=== PATIENT | male | born 1970 | race Caucasian/White ===

== ENCOUNTER 2017-03-20 07:30 | Inpatient (IN) ==
[2017-03-14 16:16] LABS: Appearance,Urine HAZY; Bilirubin,Urine NEG (NEG); Color,Urine YELLOW; Glucose,Urine (UA) NEGATIVE (NEG); Leukocyte Esterase,Urine NEG /uL (NEG); Nitrate,Urine NEG (NEG); Protein,Urine NEG (NEG); Specific Gravity,Urine 1.029 (1.000-1.035); Urine Blood NEG mg/dL (<0.03); Urobilinogen,Urine NEG (NEG)
[2017-03-14 16:37] LABS: Basophils # (Auto) 0 K/mcL (0.0-0.3); Basophils % (Auto) 0.5 % (0.0-2.0); Eosinophils # (Auto) 0.1 K/mcL (0.0-0.7); Eosinophils % (Auto) 2.7 % (0.0-7.0); Lymphocytes # (Auto) 2.4 K/mcL (1.5-4.8); Lymphocytes % (Auto) 44.3 % (15.5-49.0); Mean Cell Volume 89.5 fL (80.0-100.0); Mean Corpuscular HGB Conc 34.4 g/dL (31.0-36.0); Mean Corpuscular Hemoglobin 30.8 pg (26.0-34.0); Monocytes # (Auto) 0.5 K/mcL (0.1-0.9); Monocytes % (Auto) 8.5 % (1.0-12.0); Platelet Count 253 K/mcL (140-440); RBC 4.49 M/mcL (4.50-5.90); Red Cell Distribution Width 14.8 % (11.5-14.5)
[2017-03-14 16:38] LABS: Blood Urea Nitrogen 19 mg/dl (6-20)
[~2017-03-20 07:30] MED LIST: ACETAMINOPHEN 500 MG TABLET PO SCH; CELECOXIB 200 MG CAPSULE PO SCH; GABAPENTIN 300 MG CAPSULE PO SCH; KETOROLAC 30 MG, ROPIVACAINE HCL/PF 49.5 ML, EPINEPHrine 0.5 MG, 0.9 % SODIUM CHLORIDE ... IJ SCH; ceFAZolin 1 GM VIAL IV SCH; oxyCODONE 10 MG TAB.ER.12H PO SCH
[2017-03-20] MEDS ORDERED: NICOTINE 21 MG PATCH TOPICAL SCH (10:00)
[2017-03-20] MEDS ORDERED: ePHEDrine 50 MG/ML AMPUL IV ONE (13:00)
[2017-03-20] MEDS ORDERED: TRANEXAMIC ACID 1,000 MG/10 ML VIAL IV ONE ×2 (13:00→14:42)
[2017-03-20] MEDS ORDERED: PROPOFOL 200 MG/20 ML VIAL IV ONE (13:00)
[2017-03-20] MEDS ORDERED: DEXAMETHASONE 10 MG/ML VIAL IV ONE (13:00)
[2017-03-20] MEDS ORDERED: ROPIVACAINE HCL/PF 30 ML VIAL IJ ONE (13:00)
[2017-03-20] MEDS ORDERED: KETAMINE 100 MG/ML ML IV ONE (13:00)
[2017-03-20] MEDS ORDERED: ONDANSETRON 4 MG/2 ML VIAL IV ONE (13:00)
[2017-03-20] MEDS ORDERED: LIDOCAINE HCL/PF 100 MG/5 ML SYRINGE IV ONE (13:00)
[2017-03-20] MEDS ORDERED: MIDAZOLAM 5 MG/5 ML VIAL IV ONE (13:00)
[2017-03-20] MEDS ORDERED: GENTAMICIN SULFATE 800 MG/20 ML VIAL IR ONE (13:26)
[2017-03-20] MEDS ORDERED: PROMETHAZINE 25 MG/ML VIAL IV PRN (14:07)
[2017-03-20] MEDS ORDERED: ONDANSETRON 4 MG/2 ML VIAL IV PRN ×2 (14:07→14:42)
[2017-03-20] MEDS ORDERED: MEPERIDINE 25 MG/ML SYRINGE IV PRN (14:07)
[2017-03-20] MEDS ORDERED: NALOXONE HCL 0.4 MG/ML VIAL IV PRN (14:07)
[2017-03-20] MEDS ORDERED: METHOCARBAMOL 1,000 MG/10 ML VIAL IV PRN (14:07)
[2017-03-20] MEDS ORDERED: diphenhydrAMINE 50 MG/ML VIAL IV PRN (14:07)
[2017-03-20] MEDS ORDERED: LACTATED RINGERS 250 ML IV PRN (14:07)
[2017-03-20] MEDS ORDERED: FLUMAZENIL 0.1 MG/ML ML IV PRN (14:07)
[2017-03-20] MEDS ORDERED: BENZOCAINE/MENTHOL 1 LOZENGE PO PRN ×2 (14:07→14:42)
[2017-03-20] MEDS ORDERED: METOCLOPRAMIDE 10 MG/2 ML VIAL IV PRN (14:07)
[2017-03-20] MEDS ORDERED: HYDROmorphone 2 MG/ML SYRINGE IV PRN (14:07)
[2017-03-20] MEDS ORDERED: IPRATROPIUM/ALBUTEROL 3 ML AMPUL.NEB NEB PRN (14:07)
[2017-03-20] MEDS ORDERED: MEPERIDINE 50 MG/ML SYRINGE IM PRN (14:07)
[2017-03-20] MEDS ORDERED: ePHEDrine 50 MG/ML AMPUL IV PRN (14:07)
[2017-03-20] MEDS ORDERED: PROMETHAZINE 25 MG/ML VIAL IM PRN (14:07)
[2017-03-20] MEDS ORDERED: LACTATED RINGERS 1,000 ML IV SCH (14:15)
[2017-03-20] MEDS ORDERED: FLEETS ADULT ENEMA PR PRN (14:42)
[2017-03-20] MEDS ORDERED: MAGNESIUM HYDROXIDE 30 ML ORAL.SUSP PO PRN (14:42)
[2017-03-20] MEDS ORDERED: ACETAMINOPHEN 325 MG TABLET PO PRN (14:42)
[2017-03-20] MEDS ORDERED: POLYETHYLENE GLYCOL 3350 17 GM PACKET PO PRN (14:42)
[2017-03-20] MEDS ORDERED: TEMAZEPAM 15 MG CAPSULE PO PRN (14:42)
[2017-03-20] MEDS ORDERED: BISACODYL 10 MG SUPP.RECT PR PRN (14:42)
[2017-03-20] MEDS ORDERED: ALBUTEROL SULFATE 1 PUFF INHALER INH PRN (14:45)
--- NOTE | 2017-03-20 14:52 | Brief Operative Note ---
Date of procedure: 03/20/17 Pre-op diagnosis: Right knee djd Post-op diagnosis: same Procedure: Right total knee kimani robot Grafts/Implants: Yes Anesthesia: GETA Surgeon: Chandu Tavarez [facility] Sales Counselor: Ramsey Espinosa Estimated blood loss (cc): 20 Tourniquet Time (Minutes): 61 Specimens Removed/Pathology: none sent Condition: stable Disposition: PACU
[2017-03-20] MEDS ORDERED: Melatonin [Melatonin] 10 MG PO PRN (15:15)
[2017-03-20] MEDS: fentaNYL 100 MCG/2 ML VIAL IV PRN ×2 (15:24→15:28)
--- NOTE | 2017-03-20 15:37 | XRay Report ---
CLINICAL INFORMATION: Total knee prostheses COMPARISON: None. FINDINGS: Total knee prostheses is anatomically aligned. No osseous abnormality. Soft tissues swelling seen as expected. IMPRESSION: Negative Interpreted and Authenticated by: Matias Verma 03/20/17
[2017-03-20] MEDS: 0.45 % SODIUM CHLORIDE 1,000 ML IV SCH (15:56)
[2017-03-20] MEDS: HYDROmorphone 2 MG/ML SYRINGE IV PRN ×5 (16:11→22:44)
[2017-03-20] MEDS: PHENYLEPHRINE NAS PRN ×2 (16:33→21:40)
[2017-03-20] MEDS: HYDROcodone/APAP 10/325MG TABLET PO PRN ×2 (16:56→21:31)
[2017-03-20] MEDS: KETOROLAC 15 MG/ML VIAL IV SCH ×2 (17:25→23:36)
[2017-03-20] MEDS: traMADol 50 MG TABLET PO PRN (19:08)
[2017-03-20] MEDS: GABAPENTIN 300 MG CAPSULE PO SCH (20:13)
[2017-03-20] MEDS: ASPIRIN 325 MG ENTERIC COATED TABLET PO SCH (20:13)
[2017-03-20] MEDS: DOCUSATE SODIUM 100 MG CAPSULE PO SCH (20:13)
[2017-03-20] MEDS: oxyCODONE HCL 5 MG TABLET PO SCH (20:15)
[2017-03-20] MEDS ORDERED: SENNOSIDES 1 TABLET PO SCH (21:00)
[2017-03-20] MEDS ORDERED: FAMOTIDINE 20 MG TABLET PO PRN (21:00)
[2017-03-20] MEDS: ceFAZolin 1 GM VIAL IV SCH (21:30)
[2017-03-20] MEDS: 0.9 % SODIUM CHLORIDE 10 ML SYRINGE IV SCH (21:34)
[2017-03-21] MEDS: HYDROmorphone 2 MG/ML SYRINGE IV PRN ×4 (00:47→09:38)
[2017-03-21] MEDS: HYDROcodone/APAP 10/325MG TABLET PO PRN ×2 (01:33→05:44)
[2017-03-21] MEDS: 0.45 % SODIUM CHLORIDE 1,000 ML IV SCH (01:34)
[2017-03-21] MEDS: traMADol 50 MG TABLET PO PRN (03:18)
[2017-03-21] MEDS: ceFAZolin 1 GM VIAL IV SCH (05:43)
[2017-03-21] MEDS: KETOROLAC 15 MG/ML VIAL IV SCH (05:44)
[2017-03-21] MEDS: 0.9 % SODIUM CHLORIDE 10 ML SYRINGE IV SCH (05:44)
--- NOTE | 2017-03-21 07:20 | Operative Note ---
DATE OF OPERATION: 03/20/2017 PREOPERATIVE DIAGNOSIS: Right knee degenerative arthritis. POSTOPERATIVE DIAGNOSIS: Right knee degenerative arthritis. PROCEDURE: Right total knee arthroplasty using the [employer] robot. SURGEON: Chandu Tavarez MD [employer] NURSE: Ramsey Espinosa PA-C ANESTHESIA: General LMA anesthesia. COMPLICATIONS: None. IMPLANTS: Both components were Vidal cemented femur and tibia with an 11 mm poly insert and a 36 mm patellar button. ESTIMATED BLOOD LOSS: 20 mL DESCRIPTION OF PROCEDURE: The patient was brought to the operating room and put to sleep with general LMA anesthesia. Once asleep, the patient had the right leg sterilely prepped and draped in the usual sterile fashion. Once we confirmed the operative site, a midline incision, mid vastus approach performed of the knee. We inspected the knee showing severe arthritis in the medial compartment with torn meniscus, severe arthritis in the patellofemoral joints. At this point, we proceeded with the robotic total knee placing two pins above and below the knee, placing the arrays, registered and the center of hip rotation and medial lateral malleolus. Intraarticular pins were registered 30 points on the femur and the tibia. Osteophytes were removed and the knee was balanced. Once done, we then brought the robot in and this made the distal femoral cut, posterior chamfer cuts, anterior and posterior cuts. The tibial cut was then made. We then preserved the PCL. This was removed with the Bovie. The remnants of the meniscus were removed using a Bovie. Osteophytes posteriorly room were removed with osteotomes. At this point, we trialed the components. These seemed to fit very nicely. The 11 poly seemed to be perfectly stable, gaining full extension and 1 degree of varus or 0 degrees of varus. This was registered on the robot. We irrigated thoroughly. We then cut the patella to 13 mm from 22 mm and then we implanted a 36 mm patellar button in diameter. It measured a total thickness of 10 mm. This seemed to give the normal thickness of 24 mm to the patella. We irrigated thoroughly. We then cemented into place the above-mentioned sizes and excess cement was removed and we kept the knee at 45 degrees position until everything was bent. We then took the knee through range of motion and inspected for other pieces of extrusion. We irrigated thoroughly. We then closed the mid vastus approach with #1 self-locking stitch. This seemed to do very well. We then used 2-0 Vicryl and adhesive closure. The patient tolerated this well. Tourniquet time was 61 minutes. MICAELA:lalo Job ID: [id number] Doc ID: [id number] Chandu Tavarez MD
[2017-03-21] MEDS ORDERED: PANTOPRAZOLE 40 MG TABLET PO SCH (07:30)
--- NOTE | 2017-03-21 07:37 | Orthopedic Progress Note ---
Subjective Patient information: Note initiated : 03/21/17 at 7:36 am Service Date, if different from initiated Date: [] Patient: Angel Muñoz 47 y/o M admitted on 03/20/17 for Right Total Knee Arthroplasty - Ryan. Chief Complaint: [Pt is stable this morning on post operative day 1 without any significant concerns or complaints. Patients vital signs have remained stable. Patients dressing is dry and exhibits a grossly intact neurovascular and neuromotor exam. Patients 10 point ROS is otherwise negative. ] Objective Vital signs: Vital Signs Temp Pulse Resp BP BP Pulse Ox 03/21/17 07:23 96 03/21/17 06:45 97.7 F 16 110/68 93 03/21/17 03:25 98.4 F 77 16 105/69 94 03/20/17 22:53 98.4 F 83 16 116/62 94 03/20/17 22:42 94 03/20/17 19:25 98.1 F 91 H 16 152/92 95 03/20/17 17:30 97.9 F 18 154/81 94 03/20/17 17:00 97.6 F 16 135/78 97 03/20/17 16:27 97.9 F 18 143/88 94 03/20/17 16:12 97.9 F 16 135/91 94 03/20/17 16:01 94 03/20/17 15:59 16 129/85 94 03/20/17 15:42 97.6 F 16 129/79 94 03/20/17 15:31 97.8 F 82 17 121/67 99 03/20/17 15:17 78 12 128/78 99 03/20/17 15:07 93 H 21 119/68 99 03/20/17 15:02 97.7 F 75 12 111/65 98 03/20/17 11:40 98.8 F 16 142/95 96 03/20/17 10:55 20 Intake and Output 03/20/17 03/21/17 03/21/17 21:59 05:59 13:59 Intake Total 2230 / 2230 1213 / 1213 Output Total 825 / 825 500 / 500 Balance 1405 / 1405 713 / 713 Intake: IV 1700 / 1700 963 / 963 Sodium Chloride 0.45% 1, 963 / 963 000 ml @ 100 mls/hr IV . Q10H NOEL Rx#:[id number] Oral 530 / 530 250 / 250 Output: Void Amount 725 / 725 500 / 500 Estimated Blood Loss 100 / 100 Other: Meal Dinner sandwich & jello cup Percent of Meal Consumed 75% 100% # Voids 1 1 Weight 240 lb Intake & Output: Intake & Output 03/20/17 03/21/17 03/21/17 21:59 05:59 13:59 Intake Total 2230 / 2230 1213 / 1213 Output Total 825 / 825 500 / 500 Balance 1405 / 1405 713 / 713 Weight 240 lb Intake: IV 1700 / 1700 963 / 963 Sodium Chloride 0.45% 1, 963 / 963 000 ml @ 100 mls/hr IV . Q10H NOEL Rx#:[id number] Oral 530 / 530 250 / 250 Output: Void Amount 725 / 725 500 / 500 Estimated Blood Loss 100 / 100 Other: Meal Dinner sandwich & jello cup Percent of Meal Consumed 75% 100% # Voids 1 1 Incision: Yes healing Incision clean and dry: Yes Dressing: Yes clean, Yes dry Weight bearing status: full Neurological exam IM: Yes motor sensory intact, Yes neurovascular intact Extremities exam IM: Yes Foot pink and warm, Yes neurovascular intact - Labs CBC & BMP: 03/21/17 05:19 03/14/17 14:30 Labs: Orthopedic Labs 03/20/17 03/14/17 11:18 14:31 PT 12.8 INR 0.9 APTT TNP 03/21/17 03/14/17 05:19 14:31 Hgb 13.8 Hct 37.7 L 40.2 L Assessment and Plan (1) Hx of total knee arthroplasty Patient has been educated regarding wound care and dressings, follow up recommendations, and medication use. We will f/u with the patient within 2-3 weeks for wound check. Status: Acute
--- NOTE | 2017-03-21 07:40 | Discharge Summary ---
Ortho Discharge - TKA - Patient Instructions Diet: Regular Diet Activity: activity as tolerated, weight bearing as tolerated Total Knee Protocol: For Total Knee: Start ROM ALENA with stationary bike or rocking chair. Work on gaining full extension of knee. Posterior dislocation precautions provided. Hip abductor strengthening and gait training instructions provided. Apply Cryocuff as instructed. Dressing Care: May shower in 2 days Patient Education: Total Knee Replacement (DC) Additional Instructions: Discharge Instructions: Do the exercises at home that physical therapy gave you. Take your prescription, photo ID, insurance cards, and current medication list with you to your first physical therapy appointment. Take your prescription to pick up man any medication or equipment (such as walker, crutches, toilet riser or C.P.M.) Wear comfortable clothing for your physical therapy. Weight bearing as tolerated. If you have the Aquacel Ag dressing, leave in place for 7 days then remove. If dressing becomes soiled (turns black), remove and use gauze 4x4 dressing and silvasorb ointment and change daily. Keep incision clean and dry. If you have Dermabond (a dressing with a mesh-like appearance), leave open to air. You may start showering on post op day #2. The Dermabond dressing can get wet, do not scrub dressing. Pat dry. To avoid constipation while taking any narcotic pain medication, take an over the counter stool softener/laxative. Use your Cryocuff or ice packs as directed, on for 20 minutes at a time throughout the day. This and elevation will help with pain and swelling. Call your physician for fevers above 100.5 or pain not controlled by medication. Your prescriptions are with your discharge information. Some medications were electronically transmitted to your pharmacy of choice. - Problem Maintenance (1) Hx of total knee arthroplasty Status: Acute - Follow Up Plan Follow Up Appointments: Chandu Tavarez MD [Physician] - 04/06/17 10:10 am Disposition: Home, Self-Care Prognosis: Good Rehab Potential: Good I certify that the patient requires SNF services: No Overall status at discharge: patient is progressing back to baseline - Orders For Discharge Prescriptions: Aspirin [Ecotrin] 325 mg PO BID #60 Docusate Sodium [Colace] 100 mg PO BID #60 capsule HYDROcodone/APAP 10/325MG [[place] 10/325Mg] 1 - 2 tab PO Q4HP PRN #75 tablet PRN Reason: Pain oxyCODONE HCL [Roxicodone] 7.5 mg PO BID #60 tablet
[2017-03-21] MEDS: DOCUSATE SODIUM 100 MG CAPSULE PO SCH (08:47)
[2017-03-21] MEDS: GABAPENTIN 300 MG CAPSULE PO SCH (08:48)
[2017-03-21] MEDS: oxyCODONE HCL 5 MG TABLET PO SCH (08:48)
[2017-03-21] MEDS: ASPIRIN 325 MG ENTERIC COATED TABLET PO SCH (08:48)
[2017-03-21] MEDS ORDERED: buPROPion 150 MG TAB.SR.12H PO SCH (09:00)
[2017-03-21] MEDS ORDERED: ATORVASTATIN 20 MG TABLET PO SCH (09:00)
[2017-03-21] MEDS ORDERED: HYDROCHLOROTHIAZIDE 25 MG TABLET PO SCH (09:00)
== END 2017-03-21 11:00 | disposition home or self-care (01) | DRG 470 ==
LOC: MEDSUR 10:55
PROVIDERS: ADMIT Orthopaedic Surgery; ATTEND Orthopaedic Surgery